=== PATIENT | female | born 1955 | race Caucasian/White ===

== ENCOUNTER → 2018-03-01 | Outpatient (CLI) | payer BC ==
--- NOTE | 2018-03-01 14:56 | BD ---
EXAMINATION TYPE: Axial Bone Density DATE OF EXAM: 03/01/2018 COMPARISON: NONE CLINICAL HISTORY: Height: 5 FT 1 1/2 IN Weight: 140 FRAX RISK QUESTIONS: Secondary Osteoporosis: 3. Menopause before 45: YES RISK FACTORS HISTORY OF: Active: YES Postmenopausal woman: AGE 38 Take estrogen and/or progesterone medications: VAGINAL How lon YEAR MEDICATIONS: Additional Medications: NONE Additional History: EXAM MEASUREMENTS: Bone mineral densitometry was performed using the Ditto System. Bone mineral density as measured about the Lumbar spine is: ----- L1-L4(G/cm2): 0.899 T Score Values are as follows: ----- L2: -1.8 ----- L3: -2.3 ----- L4: -2.0 ----- L1-L4: -2.3 Bone mineral density has: DECREASED -2.4 % since study of: 2014 Bone mineral density about the R hip (g/cm2): 0.837 Bone mineral density about the L hip (g/cm2): 0.839 T Score values are as follows: -----R Neck: -1.4 -----L Neck: -1.4 -----R Total: -0.8 -----L Total: -0.4 Bone mineral density has: INCREASED 3.3 % since study of: 2014 IMPRESSION: Osteopenia (T Score between -2.5 and -1). There is slightly increased risk of fracture and the patient may be considered for treatment. Re-Screen 2-5 years. NOTE: T-SCORE=SD OF THE YOUNG ADULT MEAN.
--- NOTE | 2018-03-02 11:11 | MM ---
Reason for exam: screening (asymptomatic). Last mammogram was performed 2 years and 11 months ago. History: Patient is postmenopausal. Physical Findings: A clinical breast exam by your physician is recommended on an annual basis and results should be correlated with mammographic findings. MG Screening Mammo w CAD Bilateral CC and MLO view(s) were taken. Prior study comparison: April 04, 2015, bilateral MG screening mammo w CAD. The breast tissue is heterogeneously dense. This may lower the sensitivity of mammography. Stable calcifications left breast. There is no discrete abnormality. No significant changes when compared with prior studies. ASSESSMENT: Benign, BI-RAD 2 RECOMMENDATION: Routine screening mammogram of both breasts in 1 year.
== END | disposition home or self-care (01) ==
LOC: RADMAMWWP 12:00
PROVIDERS: ATTEND Family Medicine
DX: Z12.31 Encounter for screening mammogram for malignant neoplasm of breast (principal); M85.88 Other specified disorders of bone density and structure, other site
CPT/HCPCS: 77067; 77080

== ENCOUNTER → 2018-11-04 | Outpatient (CLI) | payer MEDICARE ==
[2018-11-04 10:30] LABS: HCT 42.7 % (34.0-46.0); HGB 13.8 gm/dL (11.4-16.0); MCHC 32.3 g/dL (31.0-37.0); MCV 98.9 fL (80.0-100.0); Mean Platelet Volume 7.4; Platelet Count 284 k/uL (150-450); RBC 4.31 m/uL (3.80-5.40); RDW 12.7 % (11.5-15.5); WBC 5.3 k/uL (3.8-10.6)
[2018-11-04 16:56] LABS: Albumin 4.8 g/dL (3.80-4.90); Albumin/Globulin Ratio 2.09 (1.20-2.10); Anion Gap 8.8 mmol/L (4.00-12.00); Calcium 10.4 mg/dL (8.7-10.3); Carbon Dioxide 26.2 mmol/L (21.6-31.8); Globulin 2.3 g/dL (1.6-3.3); LDL Cholesterol,Calculated 212.4 mg/dL (0.0-131.0); Potassium 4.6 mmol/L (3.5-5.5); Total Bilirubin 0.7 mg/dL (0.2-1.2); Total Protein 7.1 g/dL (6.2-8.2); VLDL Calculation 27.6 mg/dL (5.00-40.00)
== END | disposition home or self-care (01) ==
LOC: LABWHC1 09:35
PROVIDERS: ATTEND Nurse Practitioner Family
DX: E78.2 Mixed hyperlipidemia (principal); M81.0 Age-related osteoporosis without current pathological fracture; Z13.29 Encounter for screening for other suspected endocrine disorder; Z72.89 Other problems related to lifestyle
CPT/HCPCS: 36415; 80053; 80061; 84443; 85027; 86803

== ENCOUNTER → 2019-04-03 | Outpatient (CLI) | payer MEDICARE ==
--- NOTE | 2019-04-04 08:37 | US ---
EXAMINATION TYPE: US thyroid st tissue head/neck DATE OF EXAM: 04/03/2019 COMPARISON: NONE CLINICAL HISTORY: R59.9 Enlarged lymph nodes, unspecified. Enlarged lymph nodes, unspecified per orde r. GLAND SIZE: Right Lobe: 4.9 x 1.6 x 1.6 cm Overall Parenchyma: homogenous Left Lobe: 4.1 x 1.1 x 1.3 cm Overall Parenchyma: homogeneous Isthmus Thickness: 0.2 cm NODULES RIGHT: # of nodules measured on right: 0 LEFT: # of nodules measured on left: 0 ISTHMUS: # of nodules measured in the isthmus: 0 Bilateral neck scanned, probable lymph node seen within the right lateral neck measurin.8 x 0.7 x 0.6 cm. Probable lymph node seen within the left lateral neck measurin.9 x 0.5 x 0.6 cm. Both of these appear morphologically normal and nonenlarged. IMPRESSION: Bilateral cervical lymph nodes at the level of the thyroid gland measure within normal limits of size . No discrete thyroid nodule.
== END | disposition home or self-care (01) ==
LOC: RADUSWWP 16:44
PROVIDERS: ATTEND Family Medicine
DX: R59.9 Enlarged lymph nodes, unspecified (principal)
CPT/HCPCS: 76536

== ENCOUNTER → 2019-11-02 | Outpatient (CLI) | payer MEDICARE ==
--- NOTE | 2019-11-02 11:47 | US ---
EXAMINATION TYPE: US venous doppler duplex LE LT DATE OF EXAM: 11/02/2019 10:23 AM COMPARISON: NONE CLINICAL HISTORY: M79.662 Pain in left lower leg. Swelling. No redness. No hx blood clots. Not on b lood thinners. SIDE PERFORMED: Left TECHNIQUE: The lower extremity deep venous system is examined utilizing real time linear array sonog anabel with graded compression, doppler sonography and color-flow sonography. VESSELS IMAGED: External Iliac Vein (EIV) Common Femoral Vein Deep Femoral Vein Greater Saphenous Vein * Femoral Vein Popliteal Vein Small Saphenous Vein * Proximal Calf Veins (* superficial vessels) There is normal flow, compressibility, vascular waveforms. Left Leg: Negative for DVT IMPRESSION: No evident deep venous thrombosis at or above the left knee. Follow-up as indicated.
== END | disposition home or self-care (01) ==
LOC: RADUSWWP 10:05
PROVIDERS: ATTEND Family Medicine
DX: M79.662 Pain in left lower leg (principal); E83.52 Hypercalcemia
CPT/HCPCS: 36415; 82310; 83970